=== PATIENT | male | born 1950 | race Caucasian/White ===

== ENCOUNTER → 2022-08-17 | Outpatient (CLI) | payer OTHER, SELFPAY ==
--- NOTE | 2022-08-17 10:21 | ECHOCS_ITS ---
Reason For Study: Ischemic Heart Disease Procedure This was a 2D Doppler, Color Flow transthoracic echocardiogram. The study was technically difficult. Contrast injection was performed. Exam performed in department. Left Ventricle Normal LV size. Left ventricular systolic function is normal. The estimated ejection fraction is 60 %. No regional wall motion abnormalities noted. Right Ventricle Normal RV size. Normal systolic function. Atria Normal left atrium. Normal right atrium. Bubble contrast study negative for right to left interatrial shunt. Mitral Valve There is mild mitral annular calcification. Bileaflet diffuse mitral valve thickening. Mild (1+) eccentric mitral valve insufficiency. Tricuspid Valve Normal tricuspid valve. Mild (1+) tricuspid valve insufficiency. Pulmonary artery systolic pressure is 30 mmHg. Aortic Valve Trisinus/trileaflet aortic valve. Mild focal aortic valve calcification. Pulmonic Valve Normal pulmonic valve. Great Vessels Normal aortic root. The pulmonary artery is normal size. Normal inferior vena cava. Pericardium/Pleural Trivial pericardial effusion. Medication 22 gauge I.V. with prn adaptor inserted into left arm. Diluted definity 3ml given slow IV push to enhance endocardial definition. Performed a rapid injection of agitated mix of 9 cc saline and 1cc air to assess for atrial septal defect. MMode/2D Measurements & Calculations LVIDd: 5.2 cm IVSd: 1.4 cm Ao root diam: 3.5 cm LVIDs: 3.7 cm LVPWd: 1.2 cm LA dimension: 4.5 cm RVDd: 4.1 cm FS: 29.4 % LAV(MOD-bp): 96.7 ml LA A4 area: 28.2 cm2 RA A4 area: 21.0 cm2 LAV(MOD-bp) Indexed: 46.4 ml/m2 LAV(MOD-sp2): 84.8 ml LAV(MOD-sp4): 91.9 ml Time Measurements MV dec time: 0.18 sec Doppler Measurements & Calculations MV E max clifton: 126.8 cm/sec Lat Peak E' Clifton: 6.6 cm/sec Med Peak E' Clifton: 5.6 cm/sec MV A max clifton: 83.6 cm/sec E/E' lat: 19.3 E/E' med: 22.5 MV E/A: 1.5 MV V2 max: 139.3 cm/sec MV P1/2t max clifton: 139.8 cm/sec Ao V2 max: 189.5 cm/sec MV max P.8 mmHg MV P1/2t: 70.9 msec Ao max P.4 mmHg MV V2 mean: 67.2 cm/sec MV dec slope: 577.4 cm/sec2 MV mean P.2 mmHg MV V2 VTI: 47.0 cm MVA(P1/2t): 3.1 cm2 LV V1 max: 127.8 cm/sec MR max clifton: 634.7 cm/sec PA V2 max: 126.9 cm/sec LV V1 max P.6 mmHg MR max P.1 mmHg MR mean clifton: 495.3 cm/sec MR mean P.9 mmHg MR VTI: 252.3 cm TR max clifton: 259.1 cm/sec TR max P.9 mmHg ECHO/Echo Complete W/ Contrast Interpretation Summary Normal LV size. Left ventricular systolic function is normal. The estimated ejection fraction is 60 %. Bubble contrast study negative for right to left interatrial shunt. Trivial pericardial effusion. Ordering Physician: Blayne Santos Referring Physician: Blayne Santos Performed By: Vega Byers RCS
== END | disposition home or self-care (01) ==
LOC: CVS 10:20
PROVIDERS: Referring Provider Chiropractor; Visit Provider Chiropractor
DX: I25.9 Chronic ischemic heart disease, unspecified (principal); I31.39 Other pericardial effusion (noninflammatory)
CPT/HCPCS: 93306; Q9957; A4216; C8929